=== PATIENT | female | born 1995 | race Two or more races ===

== ENCOUNTER → 2018-08-15 | Outpatient (CLI) | payer OTHER | LOC: OD 15:10 | PROVIDERS: ATTEND Family Medicine | DX: O20.9 Hemorrhage in early pregnancy, unspecified (principal) | CPT/HCPCS: 36415; 84702; 86900; 86901 ==

== ENCOUNTER 2019-07-08 20:21 | Outpatient (CLI) | payer OTHER ==
[2019-07-08] MEDS: RINGERS SOLUTION,LACTATED 1,000 ML IV PRN ×2 (20:57→22:14)
[2019-07-08] MEDS ORDERED: PROMETHAZINE HCL INJ 25 MG/1 ML VIAL ONE (21:02)
[2019-07-08 21:05] LABS: APPEARANCE,URINE CLOUDY; BILIRUBIN,URINE NEGATIVE (NEGATIVE); COLOR,URINE YELLOW; GLUCOSE, URINE NEGATIVE (NEGATIVE); KETONES,URINE NEGATIVE (NEGATIVE); LEUKOCYTE ESTERASE,URINE SMALL (NEGATIVE); NITRITE,URINE NEGATIVE (NEGATIVE); PROTEIN,URINE NEGATIVE (NEGATIVE); URINE SPECIFIC GRAVITY 1.018; UROBILINOGEN,URINE NEGATIVE mg/dL (<2.0)
[2019-07-08] MEDS ORDERED: ACETAMINOPHEN 325 MG TABLET ONE (21:15)
[2019-07-08 21:18] LABS: URINE AMPHETAMINES SCREEN NEGATIVE; URINE BARBITURATES SCREEN NEGATIVE; URINE BENZODIAZEPINES SCREEN NEGATIVE; URINE COCAINE SCREEN NEGATIVE; URINE MARIJUANA (THC) SCREEN NEGATIVE; URINE METHADONE SCREEN NEGATIVE; URINE PHENCYCLIDINE SCREEN NEGATIVE
[2019-07-08 21:24] LABS: A TYPE INFLUENZA AG NEGATIVE (NEGATIVE); B INFLUENZA AG NEGATIVE (NEGATIVE)
[2019-07-08] MEDS ORDERED: PROMETHAZINE HCL INJ 25 MG/1 ML VIAL IV ONE (21:30)
[2019-07-08] MEDS ORDERED: CEFTRIAXONE INJ 1000 MG VIAL IV ONE (21:55)
[2019-07-08] MEDS ORDERED: CEFTRIAXONE INJ 1000 MG VIAL ONE (21:57)
[2019-07-08] MEDS ORDERED: ACETAMINOPHEN 325 MG TABLET PO ONE (22:00)
[2019-07-08] MEDS ORDERED: CEFTRIAXONE 2 GM/D5W RTU 2 GM/50 ML RTUPB IV ONE (23:00)
== END 2019-07-08 23:26 | disposition home or self-care (01) ==
LOC: LC 20:21
PROVIDERS: ATTEND Obstetrics & Gynecology
PROC: 4A1HXCZ Monitoring of Products of Conception, Cardiac Rate, External Approach (ICD-10-PCS; principal; 2019-07-08)
DX: O47.03 False labor before 37 completed weeks of gestation, third trimester (principal); Z3A.28 28 weeks gestation of pregnancy
CPT/HCPCS: 87086; 81001; 80307; 87804; 59899; J2550; J0696

== ENCOUNTER 2019-09-06 08:22 | Inpatient (IN) | payer OTHER ==
[2019-09-06 09:19] LABS: APPEARANCE,URINE CLEAR; BILIRUBIN,URINE NEGATIVE (NEGATIVE); COLOR,URINE STRAW; GLUCOSE, URINE NEGATIVE (NEGATIVE); KETONES,URINE NEGATIVE (NEGATIVE); LEUKOCYTE ESTERASE,URINE NEGATIVE (NEGATIVE); NITRITE,URINE NEGATIVE (NEGATIVE); PROTEIN,URINE NEGATIVE (NEGATIVE); URINE SPECIFIC GRAVITY 1.006; UROBILINOGEN,URINE NEGATIVE mg/dL (<2.0)
[2019-09-06 09:38] LABS: URINE AMPHETAMINES SCREEN NEGATIVE; URINE BARBITURATES SCREEN NEGATIVE; URINE BENZODIAZEPINES SCREEN NEGATIVE; URINE COCAINE SCREEN NEGATIVE; URINE MARIJUANA (THC) SCREEN NEGATIVE; URINE METHADONE SCREEN NEGATIVE; URINE PHENCYCLIDINE SCREEN NEGATIVE
[2019-09-06] MEDS ORDERED: RINGERS SOLUTION,LACTATED 300 ML IV ONE (10:20)
[2019-09-06] MEDS ORDERED: PENICILLIN G-K 5 MILLION UNIT VIAL ONE ×2 (10:26→14:50)
[2019-09-06] MEDS ORDERED: OXYTOCIN 10 UNIT/ML VIAL ONE (10:27)
[2019-09-06] MEDS ORDERED: MISOPROSTOL 0.2 MG TABLET ONE (10:27)
[2019-09-06] MEDS ORDERED: OXYTOCIN/NORMAL SALINE 20 UNIT/1,000 ML RTUINJ ONE (10:28)
[2019-09-06] MEDS ORDERED: LIDOCAINE 1% INJ-PF (10 MG/ML) 30 ML SDV ONE (10:28)
[2019-09-06] MEDS: RINGERS SOLUTION,LACTATED 1,000 ML IV PRN ×3 (10:39→16:47)
[2019-09-06] MEDS ORDERED: PENICILLIN G-K 5 MILLION UNIT VIAL IV ONE (10:52)
--- NOTE | 2019-09-06 10:53 | Admission Physical ---
Datetime Report Generated by CPN: 09/06/2019 10:53 CURRENT ADMISSION Chief Complaint: Uterine Contractions; Suspected Ruptured Membranes Admit Impression : , Intrauterine ; Ruptured Membranes Admit Impression- Other: GBS unknown Admit Plan: Admit to Unit ALLERGIES Medication Allergies: No Medication Allergies: No Known Allergies (09/06/2019) Latex: No Latex Allergies Food Allergies: none Environmental Allergies: none OBSTETRICAL HISTORY EDC: 09/29/2019 00:00 : 2 Para: 0 SAB: 1 Gestational Diabetes: No Rh Sensitization: No Incompetent Cervix: No ISHA: No Infertility: No ART Treatment: Unknown Uterine Anomaly: No IUGR: No Hx Previous C/S: No Macrosomia: No Hx Loss/Stillborn: No PIH: No Hx : No Placenta Previa/Abruption: No Depression/PP Depression: No PTL/PROM: Unknown Post Hemorrhage: No Current Procedures: Ultrasound Obstetrical History Comments: G1-SAB 7-9 weeks G2- current SEE RECORDS Alcohol: No Marijuana : No Cocaine: No Other Illicit Drugs: No Cigarettes: Never Smoker. 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 Surgery: No Heart Disease: No Hosp/Surgery: Yes Autoimmune Disorder: No Anesthetic Complications: No Kidney Disease: No Abnormal Pap Smear: No Neuro/Epilepsy: No Psychiatric Disorders: Yes Other Medical Diseases: No Hepatitis/Liver Disease: No Significant Family History: No Varicosities/Phlebitis: No Trauma/Violence : No Thyroid Dysfunction: No Medical History Comments: anxiety- on lorazepam prior to 07/08/2019- hospitalized d/t throwing up and slight fever INFECTIOUS HISTORY Gonorrhea: No Genital Herpes: No Chlamydia: No Tuberculosis: No Syphilis: No Hepatitis: No HIV/AIDS Exposure: No Rash or Viral Illness: No HPV: No PHYSICAL EXAM General: Normal HEENT: Normal Neurologic: Normal Thyroid: Normal Heart: Normal Lungs: Normal Breast: Normal Back: Normal Abdomen: Normal Genitourinary Exam: Normal Extremities: Normal DTRs: Normal Pelvic Type: Adequate Vital Signs: Reviewed; Within Normal Limits MEMBRANES Membranes: Ruptured Amniotic Fluid Color: Clear FETUS A EGA: 36.5 Monitoring: External US FHR- Baseline: 140 Variability: Moderate 6-25bpm Accelerations: 15X15 Decelerations: None FHR Category: Category I Admit Comment: at 36.5 wks, presents c/o leaking amniotic fluid starting this morning at 0647. +Actiprom test. GBS status pending, Vtx on Dr Janet Sparrow is the Attending MD and aware of pt status. Plan to admit to unit, pt may eat a light breakfast per her request. May need to augment with Pitocin, Start PCN prophylaxis. Pt does plan an epidural when in active labor PLANS FOR LABOR AND DELIVERY Labor and Delivery: None Pain Management: Epidural Feeding Preference: Breast Benefit of Breast Feed Discussed: Yes Circumcision: Yes INFORMED CONSENT Assignment: Lisbeth Enriquez MD Signature: with User ID: [email or web address] : with User ID: [email or web address]
[2019-09-06 11:33] LABS: ABSOLUTE MONOCYTES (AUTO) 0.7 10^3/uL (0.1-1.4); ABSOLUTE NEUT (AUTO) 10.7 10^3/uL (1.7-8.2); BASOPHILS % (AUTO) 0.2 % (0-2); EOSINOPHILS % (AUTO) 0.1 % (0-6); HEMATOCRIT 32.4 % (36.0-47.0); HEMOGLOBIN 11.1 g/dL (12.0-15.5); LYMPHOCYTES % (AUTO) 8.2 % (13-45); MEAN CORPUSCULAR HEMOGLOBIN 30.2 pg (27.0-33.4); MEAN CORPUSCULAR HGB CONC 34.2 g/dL (32.0-36.0); MEAN CORPUSCULAR VOLUME 88 fl (80-97); MONOCYTES % (AUTO) 5.5 % (3-13); PLATELET COUNT 111 10^3/uL (150-450); RED BLOOD COUNT 3.67 10^6/uL (3.72-5.28); RED CELL DISTRIBUTION WIDTH 14.3 % (11.5-14.0); TOTAL CELLS COUNTED % (AUTO) 100 %; WHITE BLOOD COUNT 12.4 10^3/uL (4.0-10.5)
--- NOTE | 2019-09-06 12:54 | Warning Signs in Babies ---
VOD Warning Signs Datetime Report Generated by [facility]: 09/06/2019 12:54 VOD#608 -Warning Signs in Babies: Viewed with Parent(s)/Family (09/06/2019 12:53:Nilson Guevara RN)
--- NOTE | 2019-09-06 12:54 | Warning Signs in Babies ---
VOD Warning Signs Datetime Report Generated by [facility]: 09/06/2019 12:53 VOD#608 -Warning Signs in Babies: Viewed with Parent(s)/Family (07/08/2019 20:46:Nilson Guevara RN)
[2019-09-06] MEDS ORDERED: PENICILLIN G-K 5 MILLION UNIT VIAL IV SCH (14:00)
[2019-09-06] MEDS ORDERED: OXYTOCIN/NORMAL SALINE 20 UNIT/1,000 ML RTUINJ IV PRN ×2 (14:36→17:44)
[2019-09-06] MEDS ORDERED: FENTANYL/BUPIVACAINE/NS/PF 0 MCG/0 ML RTUINJ EPI ONE (16:41)
[2019-09-06] MEDS ORDERED: BUPIVACAINE HCL 0.25 % INJ/PF (2.5 MG/1 ML) 30 ML VIAL ONE (16:41)
[2019-09-06] MEDS ORDERED: EPHEDRINE SULFATE INJ 50 MG/1 ML AMPULE ONE (16:42)
[2019-09-06] MEDS ORDERED: LIDOCAINE 2% JELLY 5 ML TUBE ONE (17:19)
[2019-09-06] MEDS ORDERED: DIPH/PERTUSS(ACELL)/TETANUS VAC/PF 0.5 ML SYR (>=10YO) IM PRN (17:44)
[2019-09-06] MEDS ORDERED: ZOLPIDEM TARTRATE 5 MG TABLET PO PRN (17:44)
[2019-09-06] MEDS ORDERED: MEASLES,MUMPS&RUBELLA VACC/PF 0.5 ML VIAL SUBCUT PRN (17:44)
[2019-09-06] MEDS ORDERED: DIBUCAINE 1% OINTMENT 28 GM TP PRN (17:44)
[2019-09-06] MEDS ORDERED: BENZOCAINE/MENTHOL AEROSOL SPRAY 56 ML TOP PRN (17:44)
[2019-09-06] MEDS ORDERED: ACETAMINOPHEN WITH CODEINE #3 TABLET PO PRN ×2 (17:44)
[2019-09-06] MEDS ORDERED: IBUPROFEN 800 MG TABLET PO SCH (18:00)
--- NOTE | 2019-09-06 19:58 | Delivery Summary ---
Del Sum A-C Datetime Report Generated by CPN: 09/06/2019 19:58 DELIVERY PERSONNEL DELIVERY PERSONNEL: [id number] Delivery Doctor:: Renae Galaviz CNM Nurse Educational Administrator Certified:: Renae Galaviz CNM Labor and Delivery Nurse:: Nilson Guevara RNlibrary services coordinator Nurse:: Irina Barnes RN Nursery Nurse:: Fernanda Bagley RN Coil Strapper/SCRAP SAWYER: ST Karlo Coil Strapper/SCRAP SAWYER: Yuli Soto, WIRELESS CONSULTANT Additional Personnel: : Joan Finley, RNC MATERNAL INFORMATION Delivery Anesthesia: Local Medications After Delivery: Pitocin Bolus-Please Comment Meds After Delivery Comment: Pitocin 20 units in 1000 ml nss open for bolus Delivery QBL: 100 Maternal Complications: Premature Rupture of Membranes Provider Comments: of VMI, Delivered NIKHIL with compound presentation of left posterior arm. Baby vigorous and crying, placed on pts abdoman in stable condition. Apgars pending per NBN RN. Placenta S/C/I, sent to pathology since pt is 36wks. FF w/ decreased lochia. IV Pitocin infusing, 1st degree laceration repaired. QBL 100 ml. Pt and baby left skin to skin in stable condition. PCN x 2 doses infused prior to delivery. Attending MD is Dr Gonzales. LABOR SUMMARY EDC: 09/29/2019 00:00 No. Babies in Womb: 1 Attempted: No Labor Anesthesia: None LABOR INFORMATION Reason for Induction: Not Applicable Onset of Labor: 09/06/2019 15:21 Complete Dilatation: 09/06/2019 17:00 Oxytocin: Augmentation Group B Beta Strep: unknown Antibiotics # of Doses: 2 Antibiotics Time of Last Dose: 1506 Name of Antibiotic Given: Penicillin Steroids Given: None Reason Steroids Not Administered: Not Applicable MEMBRANES Membranes Rupture Method: Spontaneous Rupture of Membranes: 09/06/2019 06:47 Length of Rupture (hr): 10.90 Amniotic Fluid Color: Clear Amniotic Fluid Amount: Small Amniotic Fluid Odor: Normal STAGES OF LABOR Stage 1 hr: 1 Stage 1 min: 39 Stage 2 hr: 0 Stage 2 min: 41 Stage 3 hr: 0 Stage 3 min: 3 Total Time in Labor hr: 2 Total Time in Labor min: 23 VAGINAL DELIVERY Episiotomy: None Laceration #1: Perineal Laceration Extension #1: First Degree Laceration Repair: Yes Laceration Repair Note: figure of 8 stitch to make hemostatic using 1% lidicane. pt tolerated well Sponge Count Correct: N/A Sharps Count Correct: N/A CSECTION DELIVERY Primary Indication: N/A Secondary Indication: N/A CSection Incidence: N/A Labor: N/A Elective: N/A CSection Incision: N/A BABY A INFORMATION Delivery Date/Time: 09/06/2019 17:41 Method of Delivery: Vaginal Born in Route : No : N/A Forceps: N/A Vacuum Extraction: N/A Shoulder Dystocia : No PRESENTATION/POSITION BABY A Presentation: Cephalic Cephalic Presentation: Vertex Vertex Position: Right Occipital Anterior Breech Presentation: N/A PLACENTA INFORMATION BABY A Placenta Delivery Time : 09/06/2019 17:44 Placenta Method of Delivery: Spontaneous Placenta Status: Delivered SCORES BABY A Heart Rate 1 min: >100 bpm Resp Effort 1 min: Slow, Irregular Reflex Irritability 1 min: Cough or Sneeze or Pulls Away Muscle Tone 1 min: Some Flexion of Extremities Color 1 min: Body Strawberry, Extremities Blue SCORE 1 MIN: 7 Heart Rate 5 min: >100 bpm Resp Effort 5 min: Good Cry Reflex Irritability 5 min: Cough or Sneeze or Pulls Away Muscle Tone 5 min: Active Motion Color 5 min: Body Strawberry, Extremities Blue SCORE 5 MIN: 9 INFANT INFORMATION BABY A Gestational Age at Delivery: 36.5 Gestational Status: Late - 34- 36.6 Weeks Infant Outcome : Liveborn Condition : Stable Sex: Male IDENTIFICATION BABY A Verification Date/Time: 09/06/2019 18:01 ID Band Number: [id number] Mother's Name Verified: Yes Infant RN Verifying Infant: TMartin,RN Additional Verifying Personnel: [facility] WEIGHT/LENGTH BABY A Birthweight (gm): 2528 Weight (lb): 5 Weight (oz): 9 Infant Length (in): 18.50 Length (cm): 46.99 CORD INFORMATION BABY A No. Cord Vessels: 3 Nuchal Cord : N/A Cord Blood Taken: Yes-For Eval (Mom's Blood Type - or O+) Infant Suction: None ASSESSMENT BABY A Skin to Skin: Yes BABY B INFORMATION : N/A SIGNATURES Assignment: Lisbeth Enriquez MD Signature: with User ID: Shy : with User ID: [email or web address]
[2019-09-06] MEDS ORDERED: IBUPROFEN 800 MG TABLET ONE (20:05)
[2019-09-07] MEDS: DOCUSATE SODIUM 100 MG CAPSULE PO SCH ×3 (03:43→17:14)
[2019-09-07] MEDS: FERROUS SULFATE 325 MG TABLET PO SCH ×3 (03:44→17:14)
[2019-09-07] MEDS: IBUPROFEN 800 MG TABLET PO SCH ×3 (06:02→22:23)
[2019-09-07 07:24] LABS: HEMATOCRIT 30.9 % (36.0-47.0); HEMOGLOBIN 10.4 g/dL (12.0-15.5); MEAN CORPUSCULAR HEMOGLOBIN 30.1 pg (27.0-33.4); MEAN CORPUSCULAR HGB CONC 33.8 g/dL (32.0-36.0); MEAN CORPUSCULAR VOLUME 89 fl (80-97); PLATELET COUNT 113 10^3/uL (150-450); RED BLOOD COUNT 3.48 10^6/uL (3.72-5.28); RED CELL DISTRIBUTION WIDTH 14.5 % (11.5-14.0); WHITE BLOOD COUNT 16.3 10^3/uL (4.0-10.5)
--- NOTE | 2019-09-07 09:47 | PDOC PROGRESS REPORT ---
Subjective-OB Progress Note for:: 09/07/19 Subjective: Pt doing well, no concerns. She reports light bleeding, reg diet and voiding without difficulty. Physical Exam (OB) Vital Signs: Temp Pulse Resp BP Pulse Ox 97.6 F 55 L 16 107/72 97 09/07/19 08:10 09/07/19 08:10 09/07/19 08:10 09/07/19 08:10 09/07/19 08:10 Intake & Output 09/06/19 09/07/19 09/08/19 06:59 06:59 06:59 Intake Total 766 Balance 766 Weight 50.7 kg - PIH/Pre-Eclampsia Headache: Absent - Lochia Lochia Amount: Scant < 10 ml Lochia Color: Rubra/Red - Abdomen Description: Soft, Flat Hernia Present: No Fundal Description: Firm Fundal Height: u/u - u/2 Objective-Diagnostic Laboratory: 09/07/19 06:49 09/06/19 09/06/19 09/07/19 11:05 11:05 06:49 WBC 12.4 H 16.3 H RBC 3.67 L 3.48 L Hgb 11.1 L 10.4 L Hct 32.4 L 30.9 L MCV 88 89 MCH 30.2 30.1 MCHC 34.2 33.8 RDW 14.3 H 14.5 H Plt Count 111 L 113 L Seg Neutrophils % 86.0 H Blood Type O POSITIVE Antibody Screen NEGATIVE Assessment and Plan(PN) - Assessment and Plan (1) (spontaneous vaginal delivery) Is this a current diagnosis for this admission?: Yes (2) 36 weeks gestation of Is this a current diagnosis for this admission?: Yes (3) PROM (premature rupture of membranes) Qualifiers: PROM onset of labor timing: onset of labor within 24 hours of rupture Is this a current diagnosis for this admission?: Yes - Time Spent with Patient Time with patient: Less than 15 minutes Medications reviewed and adjusted accordingly: Yes - Disposition Anticipated Discharge: Home Within: within 24 hours
[2019-09-07] MEDS: PRENATAL VITAMIN W DHA CAPSULE PO SCH (10:52)
[2019-09-07] MEDS: SENNOSIDES/DOCUSATE 8.6-50 MG 1 EACH TABLET PO SCH (10:59)
[2019-09-08] MEDS: IBUPROFEN 800 MG TABLET PO SCH ×2 (06:10→14:19)
[2019-09-08 08:10] VITALS: BP 111/69
[2019-09-08] MEDS: DOCUSATE SODIUM 100 MG CAPSULE PO SCH (09:49)
[2019-09-08] MEDS: SENNOSIDES/DOCUSATE 8.6-50 MG 1 EACH TABLET PO SCH (09:49)
[2019-09-08] MEDS: PRENATAL VITAMIN W DHA CAPSULE PO SCH (09:49)
[2019-09-08] MEDS: FERROUS SULFATE 325 MG TABLET PO SCH (09:49)
--- NOTE | 2019-09-08 11:03 | PDOC PROGRESS REPORT ---
Subjective-OB Progress Note for:: 09/08/19 Subjective: Doing well, no c/o, scant bleeding, . voiding Physical Exam (OB) Vital Signs: Temp Pulse Resp BP Pulse Ox 98.0 F 56 L 16 111/69 98 09/08/19 07:43 09/08/19 07:43 09/08/19 07:43 09/08/19 07:43 09/08/19 07:43 Intake & Output 09/07/19 09/08/19 09/09/19 06:59 06:59 06:59 Intake Total 766 400 Output Total 1 Balance 766 -1 400 Weight 50.7 kg - PIH/Pre-Eclampsia DTR's: 2 + Clonus: Negative Headache: Absent Epigastric Pain: No Visual Changes: No - Lochia Lochia Amount: Scant < 10 ml Lochia Color: Rubra/Red - Abdomen Description: Tender, Soft Hernia Present: No Fundal Description: Firm, Midline Fundal Height: u/u - u/2 Objective-Diagnostic Laboratory: 09/07/19 06:49 Assessment and Plan(PN) - Assessment and Plan (1) (spontaneous vaginal delivery) Is this a current diagnosis for this admission?: Yes (2) PROM (premature rupture of membranes) Qualifiers: PROM onset of labor timing: onset of labor within 24 hours of rupture Is this a current diagnosis for this admission?: Yes (3) 36 weeks gestation of Is this a current diagnosis for this admission?: Yes - Time Spent with Patient Time with patient: Less than 15 minutes Medications reviewed and adjusted accordingly: Yes - Disposition Anticipated Discharge: Home Within: within 24 hours
--- NOTE | 2019-09-08 11:07 | PDOC DISCHARGE SUMMARY ---
Impression - Admit/DC Date/PCP Admission Date/Primary Care Provider: 09/06/19 09:42 EVERTON WU, DO Discharge Date: 09/08/19 - Discharge Diagnosis (1) (spontaneous vaginal delivery) Is this a current diagnosis for this admission?: Yes (2) PROM (premature rupture of membranes) Is this a current diagnosis for this admission?: Yes (3) 36 weeks gestation of Is this a current diagnosis for this admission?: Yes - Additional Information Resuscitation Status: Full Code Discharge Diet: As Tolerated, Regular Discharge Activity: Activity As Tolerated Referrals: [facility] [Provider Group] Home Medications: Vit,Calc76/Iron/Folic [Pnv 29-1 Tablet] 1 tab PO DAILY 07/08/19 Ferrous Sulfate [Feosol 325 mg Tablet] 325 mg PO DAILY 09/06/19 HPI Gestational Age: 36.5 Reason(s) for Admission: Induction of Labor, PROM Admission Note: Augmentation, unknown GBS Procedures: NST, Ultrasound Intrapartum Procedure(s): Spontaneous Vaginal Delivery Complication(s): Laceration-Perineal Laceration-Degree: 1st Hospital Course Hospital Course: routine Results Laboratory Results: WBC 16.3 10^3/uL (4.0-10.5) H 09/07/19 06:49 RBC 3.48 10^6/uL (3.72-5.28) L 09/07/19 06:49 Hgb 10.4 g/dL (12.0-15.5) L 09/07/19 06:49 Hct 30.9 % (36.0-47.0) L 09/07/19 06:49 MCV 89 fl (80-97) 09/07/19 06:49 MCH 30.1 pg (27.0-33.4) 09/07/19 06:49 MCHC 33.8 g/dL (32.0-36.0) 09/07/19 06:49 RDW 14.5 % (11.5-14.0) H 09/07/19 06:49 Plt Count 113 10^3/uL (150-450) L 09/07/19 06:49 Lymph % (Auto) 8.2 % (13-45) L 09/06/19 11:05 Lane % (Auto) 5.5 % (3-13) 09/06/19 11:05 Eos % (Auto) 0.1 % (0-6) 09/06/19 11:05 Baso % (Auto) 0.2 % (0-2) 09/06/19 11:05 Absolute Neuts (auto) 10.7 10^3/uL (1.7-8.2) H 09/06/19 11:05 Absolute Lymphs (auto) 1.0 10^3/uL (0.5-4.7) 09/06/19 11:05 Absolute Monos (auto) 0.7 10^3/uL (0.1-1.4) 09/06/19 11:05 Absolute Eos (auto) 0.0 10^3/uL (0.0-0.6) 09/06/19 11:05 Absolute Basos (auto) 0.0 10^3/uL (0.0-0.2) 09/06/19 11:05 Seg Neutrophils % 86.0 % (42-78) H 09/06/19 11:05 Urine Color STRAW 09/06/19 09:00 Urine Appearance CLEAR 09/06/19 09:00 Urine pH 7.0 (5.0-9.0) 09/06/19 09:00 Ur Specific [place] 1.006 09/06/19 09:00 Urine Protein NEGATIVE mg/dL (NEGATIVE) 09/06/19 09:00 Urine Glucose (UA) NEGATIVE mg/dL (NEGATIVE) 09/06/19 09:00 Urine Ketones NEGATIVE mg/dL (NEGATIVE) 09/06/19 09:00 Urine Blood SMALL (NEGATIVE) H 09/06/19 09:00 Urine Nitrite NEGATIVE (NEGATIVE) 09/06/19 09:00 Urine Bilirubin NEGATIVE (NEGATIVE) 09/06/19 09:00 Urine Urobilinogen NEGATIVE mg/dL (<2.0) 09/06/19 09:00 Ur Leukocyte Esterase NEGATIVE (NEGATIVE) 09/06/19 09:00 Urine WBC (Auto) 4 /HPF 09/06/19 09:00 Urine RBC (Auto) 25 /HPF 09/06/19 09:00 Urine Bacteria (Auto) TRACE /HPF 09/06/19 09:00 Squamous Epi Cells Auto 1 /HPF 09/06/19 09:00 Urine Mucus (Auto) RARE /LPF 09/06/19 09:00 Urine Ascorbic Acid NEGATIVE (NEGATIVE) 09/06/19 09:00 Membranes Rupture POSITIVE (NEGATIVE) H 09/06/19 09:00 Urine Opiates Screen NEGATIVE 09/06/19 09:00 Urine Methadone Screen NEGATIVE 09/06/19 09:00 Ur Barbiturates Screen NEGATIVE 09/06/19 09:00 Ur Phencyclidine Scrn NEGATIVE 09/06/19 09:00 Ur Amphetamines Screen NEGATIVE 09/06/19 09:00 U Benzodiazepines Scrn NEGATIVE 09/06/19 09:00 Urine Cocaine Screen NEGATIVE 09/06/19 09:00 U Marijuana (THC) Screen NEGATIVE 09/06/19 09:00 RPR NONREACTIVE (NONREACTIVE) 09/06/19 11:05 Blood Type O POSITIVE 09/06/19 11:05 Antibody Screen NEGATIVE 09/06/19 11:05 Plan Health Concerns: routine Plan of Treatment: home with baby, rev S&S to report Goals: no complications Time Spent: Less than 30 Minutes
== END 2019-09-08 16:51 | disposition home or self-care (01) | DRG 807 ==
LOC: LC 08:22 → LR 09:42 → 2S 20:17
PROVIDERS: ADMIT Obstetrics & Gynecology; ATTEND Obstetrics & Gynecology
PROC: 10E0XZZ Delivery of Products of Conception, External Approach (ICD-10-PCS; principal; 2019-09-06)
PROC: 0HQ9XZZ Repair Perineum Skin, External Approach (ICD-10-PCS; 2019-09-06)
DX: O60.14X0 Preterm labor third trimester with preterm delivery third trimester, not applicable or unspecified (principal); O70.0 First degree perineal laceration during delivery; Z37.0 Single live birth; Z3A.36 36 weeks gestation of pregnancy; O99.344 Other mental disorders complicating childbirth; F41.9 Anxiety disorder, unspecified; O32.6XX0 Maternal care for compound presentation, not applicable or unspecified
CPT/HCPCS: 36415; 80307; 81001; 84112; 85025; 85027; 86592; 86850; 86900; 86901; 88307; 94760; J2540; J2590; J3010; J3490

== ENCOUNTER 2020-05-21 08:59 | Emergency (ER) | payer OTHER ==
--- NOTE | 2020-05-21 10:33 | ER Document Report ---
HPI - HPI Time Seen by Provider: 05/21/20 10:18 Pain Level: Denies Notes: Otherwise healthy 24-year-old female presenting to the emergency department with complaints of anxiety. Patient reports history of anxiety disorder. She does not take any daily medication. She states that she has a 9-month-old child at home and her is in the and is busy doing training exercises. She reports that she has had increased anxiety lately and does not have any m edication for this. She denies any suicidal or homicidal ideations. She does have a primary care provider. She states she has been given Ativan on an as needed basis for her anxiety however she does not take it because it makes her feel sleepy. She is asking if there is another medication that might not make her feel sleepy as she has to take care of her child. - ROS Systems Reviewed and Negative: Yes All other systems reviewed and negative - CONSTITUTIONAL Notes: Anxiety Past Medical History - General Information source: Patient - Social History Smoking Status: Never Smoker Chew tobacco use (# tins/day): No Frequency of alcohol use: None Drug Abuse: None Family History: Reviewed & Not Pertinent Psychiatric Medical History: Reports: Hx Anxiety Vertical Provider Document - CONSTITUTIONAL Notes: PHYSICAL EXAMINATION: GENERAL: Well-appearing, well-nourished and in no acute distress. HEAD: Atraumatic, normocephalic. EYES: Pupils equal round and reactive to light, extraocular movements intact, conjunctiva are normal. ENT: Nares patent, oropharynx clear without exudates. Moist mucous membranes. NECK: Normal range of motion, supple without lymphadenopathy LUNGS: Breath sounds clear to auscultation bilaterally and equal. No wheezes rales or rhonchi. HEART: Regular rate and rhythm without murmurs ABDOMEN: Soft, nontender, nondistended abdomen. No guarding, no rebound. No masses appreciated. Female : deferred Musculoskeletal: Normal range of motion, no pitting or edema. No cyanosis. NEUROLOGICAL: Cranial nerves grossly intact. Normal speech, normal gait. Normal sensory, motor exams PSYCH: Anxious. SKIN: Warm, Dry, normal turgor, no rashes or lesions noted. - INFECTION CONTROL TRAVEL OUTSIDE OF THE [place] IN LAST 30 DAYS: No Course - Re-evaluation Re-evalutation: Healthy appearing 24-year-old female presenting with complaints of anxiety. She denies any SI or HI. She is requesting medication for her symptoms. She was counseled by myself and the nurse regarding outpatient resources, she was given a list of outpatient resources and was also given information for [facility]. We did offer for her to stay and speak with her mental health team however she declines the need for this. She has good judgment and good insight. We will give her a prescription for hydroxyzine to take as needed. I encouraged her to follow-up with her primary care provider in 1 to 2 weeks to see how she is doing with this medication. The patient's emergency department workup and current diagnosis were explained to the patient and or family. Follow-up instructions were provided. Medications if prescribed were discussed. Instructions for when to return to the emergency department including specific worrisome symptoms were discussed with the patient and/or family. - Vital Signs Vital signs: Temp Pulse Resp BP Pulse Ox 98.9 F 105 H 20 130/91 H 100 05/21/20 09:09 05/21/20 09:09 05/21/20 09:09 05/21/20 09:09 05/21/20 09:09 Discharge - Discharge Clinical Impression: Anxiety Condition: Stable Disposition: HOME, SELF-CARE Instructions: Anxiety ([facility]) Additional Instructions: Anxiety The physician feels that some of your health problems are being caused by anxiety. Anxiety affects your health in many ways. Anxiety alone can cause palpitations, sweats, chest pains, abdominal pains, shortness of breath, and headaches. It contributes to ulcer disease, high blood pressure, irritable bowel syndrome, and has been shown to cause flare-ups of many other diseases. Anxiety is not a simple disorder to treat. If the anxiety is due to recent life stresses, you may simply need time to "work through" the changes. If the anxiety is due to an underlying unhappiness with yourself or due to psychiatric disturbance, professional help will be needed. Your physician can refer you for further help if needed. Anti-anxiety medication is occasionally given if the stress is acute or if you are having trouble sleeping. Chronic or frequent use of these medications is not a good idea because the body becomes reliant on it, preventing you from dealing with life's normal stresses. Please take medication as prescribed and as needed for anxiety. Please follow-up with the [facility] or the resource sheet that we gave you. Please return to the emergency department if you have any thoughts of wanting to harm yourself or others as we discussed. We are happy to see you anytime here in the emergency department. Prescriptions: Hydroxyzine Pamoate [Vistaril 25 mg Capsule] 25 mg PO QIDP PRN #30 capsule PRN Reason: Anxiety
[2020-05-21 10:45] VITALS: BP 119/86
== END 2020-05-21 10:43 | disposition home or self-care (01) ==
LOC: ER 08:59
DX: F41.9 Anxiety disorder, unspecified (principal)
CPT/HCPCS: 99283